=== PATIENT | female | born 1965 | race Caucasian/White ===

== ENCOUNTER → 2018-02-26 08:15 | Outpatient (CLI) | payer OTHER, SELFPAY ==
--- NOTE | 2018-02-26 | DI.MRI.S_ITS ---
PROCEDURE: MR LUMBAR SPINE WO CON INDICATIONS: LOW BACK PAIN TECHNIQUE: Noncontrast sagittal T1 spin echo and T2 fast echo, sagittal STIR, axial T1 and T2 fast spin echo through the lumbar spine. In cases with scoliosis, additional coronal T2 fast spin echo may be performed. COMPARISON: None. FINDINGS: Image quality: Excellent. Alignment and Curvature: There is trace L4-L5 anterolisthesis noted.. Bone Marrow: Marrow is of normal overall signal. No acute vertebral body compression fractures. Spinal Cord: Conus medullaris terminates at the L1 level. Visualized cord demonstrates normal signal and size. Paraspinous Soft Tissues: No paravertebral masses. T11-T12: Loss of disc signal and height. Moderate, diffuse disc bulge. Mild bilateral facet hypertrophy. Mild to moderate narrowing of the central canal. Mild bilateral neural foraminal narrowing. No neural impingement. T12-L1: Slight loss of disc signal. Minimal, diffuse disc bulge. Mild bilateral facet hypertrophy. No central stenosis. No neural foraminal narrowing. No neural impingement. L1-L2: Slight loss of disc signal. Minimal, diffuse disc bulge. Mild bilateral facet hypertrophy. No central stenosis. No neural foraminal narrowing. No neural impingement. L2-L3: Loss of disc signal and height. Mild to moderate diffuse disc bulge. Mild to moderate facet hypertrophy. Mild ligamentum flavum hypertrophy. Mild to moderate narrowing of the central canal. Mild bilateral neural foraminal narrowing. No neural impingement. L3-L4: Loss of disc signal. Mild to moderate diffuse disc bulge. Moderate facet and moderate ligamentum flavum hypertrophy. Moderate narrowing of the central canal. Mild to moderate neural foraminal narrowing. No neural impingement. L4-L5: Loss of disc signal. Mild diffuse disc bulge. [id number] facet hypertrophy. Moderate central canal narrowing. Moderate bilateral neural foraminal narrowing. No neural impingement. L5-S1: Loss of disc signal. Minimal, diffuse disc bulge. Moderate bilateral facet hypertrophy. No central stenosis. Mild right and moderate left neural foraminal narrowing. No neural impingement. IMPRESSION: 1. Multilevel degenerative disc disease. 2. Multilevel facet arthropathy. 3. Mild to moderate T11-T12 and L2-L3 central canal narrowing. Moderate L3-L4 and L4-L5 central canal narrowing. 4. Moderate bilateral L4-L5 neural foraminal narrowing. Mild right and moderate left L5-S1 neural foraminal narrowing. Mild to moderate bilateral L3-L4 neural foraminal narrowing. Mild bilateral T11-T12 and L2-L3 neural foraminal narrowing. 5. No neural impingement. Dictated by: Jessica Mays MD, PhD on 02/26/2018 at 10:05 Approved by: Jessica Mays MD, PhD on 02/26/2018 at 10:40
== END ==
PROVIDERS: Family Provider Nurse Practitioner Acute Care; Visit Provider Physical Medicine & Rehabilitation Pain Medicine
DX: M54.5 Low back pain (principal); M51.36 Other intervertebral disc degeneration, lumbar region; M47.816 Spondylosis without myelopathy or radiculopathy, lumbar region; M48.061 Spinal stenosis, lumbar region without neurogenic claudication; M48.04 Spinal stenosis, thoracic region
CPT/HCPCS: 72148

== ENCOUNTER → 2018-06-03 16:49 | Outpatient (CLI) | payer OTHER, SELFPAY ==
--- NOTE | 2018-06-03 | DI.MG.S_ITS ---
BILATERAL DIGITAL SCREENING MAMMOGRAM 3D/2D WITH CAD: 06/03/2018 CLINICAL: Routine screening. Family history of breast cancer. Comparison is made to exams dated: 01/27/2017 stereotactic biopsy, 01/27/2017 specimen - [facility], and 01/13/2017 mammogram - [facility]. There are scattered fibroglandular elements in both breasts. Current study was also evaluated with a Computer Aided Detection (CAD) system. No significant masses, calcifications, or other findings are seen in either breast. There has been no significant interval change. IMPRESSION: NEGATIVE There is no mammographic evidence of malignancy. A 1 year screening mammogram is recommended. This exam was interpreted at Station ID: [id number]. NOTE: For mammograms, a report in lay terms will be sent to the patient. Approximately 15% of breast malignancies will not be visualized mammographically. In the management of a palpable breast mass, a negative mammogram must not discourage biopsy of a clinically suspicious lesion. Electronically Signed By: Delbert brownlee/dariel:06/03/2018 17:49:08 letter sent: Normal Exam ACR BI-RADS Category 1: Negative 3341F
== END ==
PROVIDERS: Family Provider Nurse Practitioner Acute Care; Visit Provider Nutritionist
DX: Z12.31 Encounter for screening mammogram for malignant neoplasm of breast (principal); Z80.3 Family history of malignant neoplasm of breast
CPT/HCPCS: 77063; 77067

== ENCOUNTER → 2018-07-31 12:36 | Outpatient (CLI) | payer OTHER, SELFPAY ==
[2018-07-31 13:35] LABS: Hematocrit 41.7 % (36-46)
[2018-07-31 14:14] LABS: Amount Collected in g 585 GRAMS; Dizziness NO; Postdiastolic BP 81; Postsystolic BP 116; Prediastolic 83; Presystolic 132; Pulse 76; Site of phlebotomy LEFT AC; Swelling NO; Temperature 96.4
[2018-07-31 14:15] LABS: Therapeutic Phleb Comment COMPLETED
[2018-07-31 14:17] LABS: 585 Gram Check CHECKED; Zero Check Sebra Scale CHECKED
[2018-11-27 14:26] LABS: 585 Gram Check PASS; Dizziness NO; Postdiastolic BP 93; Postsystolic BP 142; Prediastolic 86; Presystolic 759; Pulse 72; Site of phlebotomy RAC; Swelling NO; Therapeutic Phleb Comment NO COMMENT; Zero Check Sebra Scale PASS
== END ==
PROVIDERS: PCP Nurse Practitioner Acute Care
DX: E83.110 Hereditary hemochromatosis (principal)
CPT/HCPCS: 36415; 82728; 85014; 99195

== ENCOUNTER → 2019-08-06 10:35 | Outpatient (CLI) | payer OTHER, SELFPAY ==
--- NOTE | 2019-08-06 | DI.MG.S_ITS ---
BILATERAL DIGITAL SCREENING MAMMOGRAM 3D/2D WITH CAD: 08/06/2019 CLINICAL: Routine screening. Family history of breast cancer. Comparison is made to exams dated: 06/03/2018 mammogram, 01/13/2017 mammogram, 12/27/2016 mammogram, and 09/15/2015 mammogram - [facility]. There are scattered fibroglandular elements in both breasts. Current study was also evaluated with a Computer Aided Detection (CAD) system. There are benign calcifications in both breasts. There also is a biopsy clip in the right breast. No significant masses, calcifications, or other findings are seen in either breast. There has been no significant interval change. IMPRESSION: There is no mammographic evidence of malignancy. A 1 year screening mammogram is recommended. This exam was interpreted at Station ID: [id number]. NOTE: For mammograms, a report in lay terms will be sent to the patient. Approximately 15% of breast malignancies will not be visualized mammographically. In the management of a palpable breast mass, a negative mammogram must not discourage biopsy of a clinically suspicious lesion. Electronically Signed By: Benjamín amor/dariel:08/06/2019 14:48:49 letter sent: Normal Exam ACR BI-RADS Category 2: Benign Finding(s) 3342F
== END ==
PROVIDERS: Referring Provider Nurse Practitioner; Visit Provider Nurse Practitioner
DX: Z12.31 Encounter for screening mammogram for malignant neoplasm of breast (principal); Z80.3 Family history of malignant neoplasm of breast
CPT/HCPCS: 77063; 77067

== ENCOUNTER → 2019-11-12 09:43 | Outpatient (CLI) | payer OTHER, SELFPAY ==
[2019-11-12 11:44] LABS: 585 Gram Check PASS; Dizziness NO; Postdiastolic BP 87; Postsystolic BP 130; Prediastolic 89; Presystolic 142; Pulse 79; Site of phlebotomy LAC; Swelling NO; Therapeutic Phleb Comment NO COMMENT; Zero Check Sebra Scale PASS
== END ==
PROVIDERS: PCP Nurse Practitioner; Referring Provider Internal Medicine Hematology & Oncology; Visit Provider Internal Medicine Hematology & Oncology
DX: E83.110 Hereditary hemochromatosis (principal)
CPT/HCPCS: 99195

== ENCOUNTER → 2020-01-17 10:48 | Outpatient (CLI) | payer OTHER, SELFPAY ==
[2020-01-17 13:03] LABS: Hematocrit 39.7 % (36-46); Hemoglobin 13.5 g/dL (12.0-16.0)
[2020-01-17 14:59] LABS: Ferritin 152 ng/mL (11-264)
== END ==
PROVIDERS: PCP Nurse Practitioner; Referring Provider Internal Medicine Hematology & Oncology; Visit Provider Internal Medicine Hematology & Oncology
DX: E83.110 Hereditary hemochromatosis (principal)
CPT/HCPCS: 36415; 82728; 85014; 85018

== ENCOUNTER → 2020-01-21 12:20 | Outpatient (CLI) | payer OTHER, SELFPAY ==
[2020-01-21 13:14] LABS: 585 Gram Check PASS; Dizziness NO; Postdiastolic BP 86; Postsystolic BP 122; Prediastolic 94; Presystolic 145; Pulse 78; Site of phlebotomy LAC; Swelling NO; Therapeutic Phleb Comment NO COMMENT; Zero Check Sebra Scale PASS
== END ==
PROVIDERS: PCP Nurse Practitioner; Referring Provider Internal Medicine Hematology & Oncology; Visit Provider Internal Medicine Hematology & Oncology
DX: E83.110 Hereditary hemochromatosis (principal)
CPT/HCPCS: 99195

== ENCOUNTER → 2020-02-25 09:48 | Outpatient (CLI) | payer OTHER, SELFPAY ==
[2020-02-25 10:30] LABS: 585 Gram Check PASS; Dizziness NO; Postdiastolic BP 78; Postsystolic BP 140; Prediastolic 85; Presystolic 139; Pulse 78; Site of phlebotomy LAC; Swelling NO; Therapeutic Phleb Comment NO COMMENT; Zero Check Sebra Scale PASS
[2020-02-25 11:10] LABS: Hematocrit 35.6 % (36-46)
[2020-02-25 12:26] LABS: Ferritin 114 ng/mL (11-264)
== END ==
PROVIDERS: PCP Nurse Practitioner; Referring Provider Internal Medicine Hematology & Oncology; Visit Provider Internal Medicine Hematology & Oncology
DX: E83.110 Hereditary hemochromatosis (principal)
CPT/HCPCS: 82728; 85014; 99195

== ENCOUNTER → 2020-04-28 11:49 | Outpatient (CLI) | payer OTHER, SELFPAY ==
[2020-04-28 13:05] LABS: 585 Gram Check PASS; Amount Collected in g 544g; Dizziness NO; Postdiastolic BP 71; Postsystolic BP 133; Prediastolic 95; Presystolic 144; Pulse 80; Site of phlebotomy LAC; Swelling NO; Therapeutic Phleb Comment NO COMMENT; Zero Check Sebra Scale PASS
== END ==
PROVIDERS: PCP Nurse Practitioner; Referring Provider Internal Medicine Hematology & Oncology; Visit Provider Internal Medicine Hematology & Oncology
DX: E83.110 Hereditary hemochromatosis (principal)
CPT/HCPCS: 99195

== ENCOUNTER → 2020-12-02 10:30 | Outpatient (CLI) | payer OTHER, SELFPAY ==
--- NOTE | 2020-12-02 | DI.MG.S_ITS ---
BILATERAL DIGITAL SCREENING MAMMOGRAM 3D/2D WITH CAD: 12/02/2020 CLINICAL: Routine screening. Family history of breast cancer. Comparison is made to exams dated: 08/06/2019 mammogram, 06/03/2018 mammogram, and 12/27/2016 mammogram - [facility]. There are scattered fibroglandular elements in both breasts. Current study was also evaluated with a Computer Aided Detection (CAD) system. There is a stable benign focal asymmetry in both breasts. There also are stable benign calcifications in both breasts. Additionally, there is a biopsy clip in the right breast. No significant masses, calcifications, or other findings are seen in either breast. There has been no significant interval change. IMPRESSION: BENIGN There is no mammographic evidence of malignancy. A 1 year screening mammogram is recommended. This exam was interpreted at Station ID: [id number]. NOTE: For mammograms, a report in lay terms will be sent to the patient. Approximately 15% of breast malignancies will not be visualized mammographically. In the management of a palpable breast mass, a negative mammogram must not discourage biopsy of a clinically suspicious lesion. Electronically Signed By: Perry Cardenas acr/penrad:12/04/2020 07:49:31 letter sent: Normal Exam ACR BI-RADS Category 2: Benign Finding(s) 3342F
== END ==
PROVIDERS: PCP Nurse Practitioner; Referring Provider Nurse Practitioner; Visit Provider Nurse Practitioner
DX: Z12.31 Encounter for screening mammogram for malignant neoplasm of breast (principal)
CPT/HCPCS: 77063; 77067

== ENCOUNTER → 2021-01-12 11:55 | Outpatient (CLI) | payer OTHER, SELFPAY ==
[2021-01-12 13:49] LABS: 585 Gram Check PASS; Amount Collected in g 216g; Dizziness NO; Postdiastolic BP 94; Postsystolic BP 134; Prediastolic 95; Presystolic 149; Pulse 82; Site of phlebotomy LAC; Swelling NO; Therapeutic Phleb Comment NO COMMENT; Zero Check Sebra Scale PASS
== END ==
PROVIDERS: PCP Nurse Practitioner; Referring Provider Internal Medicine Hematology & Oncology; Visit Provider Internal Medicine Hematology & Oncology
DX: E83.10 Disorder of iron metabolism, unspecified (principal)
CPT/HCPCS: 99195

== ENCOUNTER → 2021-12-08 10:23 | Outpatient (CLI) | payer OTHER, SELFPAY ==
--- NOTE | 2021-12-08 10:24 | DI.CT.S_ITS ---
PROCEDURE: CT CHEST WO CON INDICATIONS: LUNG SCREENING TECHNIQUE: Noncontrast 2.0-2.5 mm thick sections acquired from the pulmonary apices to the posterior costophrenic angles. 7 mm thick axial MIP, and 5 mm coronal and sagittal reformats were then acquired. A low radiation dose technique was utilized. COMPARISON: None. FINDINGS: Image quality: Diagnostic, given the low radiation dose technique. Lungs and pleura: Several calcified pulmonary granulomas can be seen. No suspicious pulmonary soft tissue nodules are seen. No focal infiltrates are seen. No pneumothorax or pleural effusions are seen. The central airways are patent. Mediastinum: Heart size is normal. No pericardial effusion. No mediastinal adenopathy by size criteria. Thoracic aorta and central pulmonary arteries are normal in size. Esophagus is normal in caliber. No hiatal hernia. Bones and chest wall: No suspicious bony lesions. No vertebral body compression fractures. Age-appropriate bony degenerative changes are seen. Accentuated thoracic kyphosis is seen. No axillary or supraclavicular adenopathy by size criteria. Thyroid gland demonstrates no significant noncontrast abnormality. Abdomen: Visualized upper abdomen solid organs and bowel loops appear normal in the absence of contrast. IMPRESSION: No suspicious pulmonary nodules are seen. Incidental note is made of: Prior granulomatous exposure. LUNG-RADS 1; Recommend annual screening for lung cancer with low dose CT, as long as the patient meets the screening criteria. Dictated by: Solitario Kirk M.D. on 12/08/2021 at 18:14 Approved by: Solitario Kirk M.D. on 12/08/2021 at 18:15
--- NOTE | 2021-12-08 10:24 | DI.MG.S_ITS ---
BILATERAL DIGITAL SCREENING MAMMOGRAM 3D/2D WITH CAD: 12/08/2021 CLINICAL: Routine screening. Family history of breast cancer. Comparison is made to exams dated: 12/02/2020 mammogram, 08/06/2019 mammogram, and 06/03/2018 mammogram - [facility]. There are scattered areas of fibroglandular density in both breasts (category b / 25%-50% glandular tissue). Current study was also evaluated with a Computer Aided Detection (CAD) system. There is a possible asymmetry with an indistinct margin in the left breast middle depth central to the nipple seen on the craniocaudal view only. No other significant masses, calcifications, or other findings are seen in either breast. IMPRESSION: INCOMPLETE: NEEDS ADDITIONAL IMAGING EVALUATION The possible asymmetry in the left breast is indeterminate. Additional views with possible ultrasound are recommended. Based on the Tyrer Cuzick model (a risk assessment model) the patient's lifetime risk is 14.4% and her 10 year risk is 4.5%. According to the ACR, ACS, and NCCN guidelines, an annual breast MRI exam along with mammogram is recommended if the patient's lifetime risk is 20% or greater. This exam was interpreted at Station ID: [id number]. NOTE: For mammograms, a report in lay terms will be sent to the patient. Approximately 15% of breast malignancies will not be visualized mammographically. In the management of a palpable breast mass, a negative mammogram must not discourage biopsy of a clinically suspicious lesion. Electronically Signed By: Martín Lazaro M.D., jr/dariel:12/10/2021 13:32:54 letter sent: Additional Imaging Needed ACR BI-RADS Category 0: Incomplete 3340F
== END ==
PROVIDERS: PCP Nurse Practitioner; Referring Provider Nurse Practitioner; Visit Provider Nurse Practitioner
DX: Z12.31 Encounter for screening mammogram for malignant neoplasm of breast (principal); Z80.3 Family history of malignant neoplasm of breast; Z12.2 Encounter for screening for malignant neoplasm of respiratory organs; Z72.0 Tobacco use
CPT/HCPCS: 71250; 77063; 77067

== ENCOUNTER → 2022-02-01 13:16 | Outpatient (CLI) | payer OTHER, SELFPAY ==
--- NOTE | 2022-02-01 | DI.MG.S_ITS ---
UNILATERAL LEFT DIGITAL DIAGNOSTIC MAMMOGRAM 3D/2D WITH ADDITIONAL VIEWS: 02/01/2022 CLINICAL: Additional evaluation requested from prior study. Comparison is made to exams dated: 12/08/2021 mammogram, 12/02/2020 mammogram, and 08/06/2019 mammogram - [facility]. There are scattered areas of fibroglandular density in the left breast (category b / 25%-50% glandular tissue). The possible asymmetry in the left breast middle depth central to the nipple seen on the craniocaudal view only is no longer seen and is consistent with fibroglandular tissue. This is not seen in additional views. No other significant masses or calcifications are seen in the breast. IMPRESSION: BENIGN There is no mammographic evidence of malignancy. A 1 year screening mammogram is recommended. Based on the Tyrer Cuzick model (a risk assessment model) the patient's lifetime risk is 14.4% and her 10 year risk is 4.5%. According to the ACR, ACS, and NCCN guidelines, an annual breast MRI exam along with mammogram is recommended if the patient's lifetime risk is 20% or greater. This exam was interpreted at Station ID: [id number]. NOTE: For mammograms, a report in lay terms will be sent to the patient. Approximately 15% of breast malignancies will not be visualized mammographically. In the management of a palpable breast mass, a negative mammogram must not discourage biopsy of a clinically suspicious lesion. Electronically Signed By: Perry mcpherson/dariel:02/01/2022 14:05:08 letter sent: Normal Exam ACR BI-RADS Category 2: Benign Finding(s) 3342F
== END ==
PROVIDERS: PCP Nurse Practitioner; Referring Provider Nurse Practitioner; Visit Provider Nurse Practitioner
DX: R92.8 Other abnormal and inconclusive findings on diagnostic imaging of breast (principal)
CPT/HCPCS: 77065; G0279

== ENCOUNTER → 2023-01-17 14:36 | Outpatient (CLI) | payer OTHER, SELFPAY ==
--- NOTE | 2023-01-17 | DI.MG.S_ITS ---
BILATERAL DIGITAL SCREENING MAMMOGRAM 3D/2D WITH CAD: 01/17/2023 CLINICAL: Routine screening. Family history of breast cancer. Comparison is made to exams dated: 12/08/2021 mammogram, 12/02/2020 mammogram, and 08/06/2019 mammogram - [facility]. There are scattered areas of fibroglandular density in both breasts (category b / 25%-50% glandular tissue). Current study was also evaluated with a Computer Aided Detection (CAD) system. There is a benign focal asymmetry in the right breast. There also are a benign focal asymmetry and calcification in the left breast. No significant masses, calcifications, or other findings are seen in either breast. There has been no significant interval change. IMPRESSION: BENIGN There is no mammographic evidence of malignancy. A 1 year screening mammogram is recommended. Based on the Tyrer Cuzick model (a risk assessment model) the patient's lifetime risk is 14.3% and her 10 year risk is 4.7%. According to the ACR, ACS, and NCCN guidelines, an annual breast MRI exam along with mammogram is recommended if the patient's lifetime risk is 20% or greater. This exam was interpreted at Station ID: [id number]. NOTE: For mammograms, a report in lay terms will be sent to the patient. Approximately 15% of breast malignancies will not be visualized mammographically. In the management of a palpable breast mass, a negative mammogram must not discourage biopsy of a clinically suspicious lesion. Electronically Signed By: Perry mcpherson/dariel:01/17/2023 17:03:02 letter sent: Normal Exam ACR BI-RADS Category 2: Benign Finding(s) 3342F
== END ==
PROVIDERS: PCP Nurse Practitioner; Referring Provider Nurse Practitioner; Visit Provider Nurse Practitioner
DX: Z12.31 Encounter for screening mammogram for malignant neoplasm of breast (principal); Z80.3 Family history of malignant neoplasm of breast
CPT/HCPCS: 77063; 77067

== ENCOUNTER → 2025-01-28 07:22 | Outpatient (CLI) | payer OTHER, SELFPAY ==
--- NOTE | 2025-01-28 07:23 | DI.US.S_ITS ---
PROCEDURE: US ABDOMEN LIMITED INDICATIONS: Abdominal pain TECHNIQUE: Real-time scanning was performed of the abdominal and retroperitoneal organs, with image documentation. COMPARISON: [facility], CT, CT ABDOMEN PELVIS WITH CONTRAST, 08/06/2024, 13:58. FINDINGS: Liver: Liver is normal in size and homogeneous in echotexture. Gallbladder: No gallstones. Wall thickness is at the upper limits of normal.. No pericholecystic edema. Negative sonographic Vance's sign. Biliary ducts: Intrahepatic bile ducts are non-dilated. Extrahepatic bile duct caliber measures 4 mm. Normal is 6-7 mm or less in diameter, or 10 mm or less post-cholecystectomy. Pancreas: Visualized portions of the pancreas are sonographically normal. Miscellaneous: No free abdominal fluid. IMPRESSION: Gallbladder wall thickness is at the upper limits of normal overall nonspecific. No stones. Dictated by: Valreia Peres M.D. on 01/28/2025 at 16:40 Approved by: Valeria Peres M.D. on 01/28/2025 at 16:42
== END ==
PROVIDERS: PCP Nurse Practitioner; Referring Provider Surgery; Visit Provider Surgery
DX: R07.9 Chest pain, unspecified (principal)
CPT/HCPCS: 76705

== ENCOUNTER → 2025-02-18 15:14 | Outpatient (CLI) | payer OTHER, SELFPAY ==
--- NOTE | 2025-02-18 15:15 | DI.MG.S_ITS ---
MM screening mammo BI: 02/18/2025. BI-RADS: 1 CLINICAL: 59-year old female for bilateral screening mammogram. Tyrer-Cuzick lifetime risk of 15.1%. No personal or first-degree family history of breast cancer. Current reported family history of breast cancer: maternal aunt. The patient had a prior right breast biopsy. PRIOR EXAMS 01/17/2023, 02/01/2022, 12/08/2021, 12/02/2020. MAMMOGRAPHY TECHNIQUE: 2D and 3D (tomosynthesis) digital mammographic views obtained, with additional images as needed for full coverage. Current study was also evaluated with a Computer Aided Detection (CAD) system. DENSITY B. There are scattered areas of fibroglandular density. MAMMOGRAPHY FINDINGS Bilateral: No suspicious mass, asymmetry, microcalcification, or other abnormality seen. IMPRESSION: * No evidence of malignancy. RECOMMENDATIONS Bilateral * Annual screening mammography. OVERALL ASSESSMENT CATEGORY BI-RADS-1: Negative. The [employer] recommends annual screening mammography beginning at age 40 for women with average risk of breast cancer. ELECTRONICALLY SIGNED: Benjamín Owens M.D. on 02/20/2025 at 07:51:52 PM PT Interpreting Station ID: [id number]
== END ==
LOC: MAMMO 15:15
PROVIDERS: PCP Nurse Practitioner; Referring Provider Nurse Practitioner; Visit Provider Nurse Practitioner
DX: Z12.31 Encounter for screening mammogram for malignant neoplasm of breast (principal); Z80.3 Family history of malignant neoplasm of breast
CPT/HCPCS: 77063; 77067